=== PATIENT | female | born 1990 | race Hispanic/Latino ===

== ENCOUNTER → 2016-11-08 | Outpatient (CLI) | payer OTHER | LOC: LAB.O 12:38 | PROVIDERS: ATTEND Obstetrics & Gynecology | DX: F10.10 Alcohol abuse, uncomplicated (principal) ==

== ENCOUNTER 2016-12-26 15:59 | Emergency (ER) | payer OTHER ==
[2016-12-26 16:25] VITALS: TEMP 98.3
[2016-12-26] MEDS ORDERED: predniSONE 20 MG TAB PO ONE (16:39)
--- NOTE | 2016-12-26 16:51 | ED.PDOC ---
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 Over the last 48-72 hours she has had a little more weakness and spasticity to her right upper and right lower extremity than over her baseline. Additionally she has been having a little more tingling and sensation of something crawling on her left lateral thigh than she does at baseline. She feels like the area there is a little more numb than it normally is additionally. She reports no recent injuries and no new areas of pain. No incontinence. No change in functional status. She is very active. She has been exercising on a stationary bicycle regularly. She does take multiple medications for the neurological discomfort but has not had any recent changes in her dosages. She has been getting more dehydrated than usual as this is the start of summer and she has been outside more than normal and she has been exercising over the last couple months a little more than normal. No incontinence. She does not appear to be having any new symptoms but rather a slight worsening of her chronic symptoms. She reports that she feels that the Neurontin and methocarbamol are not having the same effect that they used to. She does have a follow-up appointment with her neurologist in 4 days. Her functional status is not changed. She is in no distress. She communicates, interacts and moves around at her baseline state. Severity: mild Improving Factors: nothing Worsening Factors: nothing Associated Symptoms: weakness Allergies/Adverse Reactions: Allergies NO KNOWN ALLERGY Allergy (Verified 12/26/16 16:26) Home Medications: Ambulatory Orders Amitriptyline HCl [Elavil] 25 mg PO BEDTIME 12/26/16 Citalopram Hydrobromide 20 mg PO DAILY 12/26/16 Famotidine 20 mg PO DAILY #30 tab 12/26/16 Gabapentin 600 mg PO TID 12/26/16 Methocarbamol 750 mg PO TID 12/26/16 cloNAZepam [KlonoPIN] 0.5 mg PO BID 12/26/16 hydrOXYzine HCl [Atarax] 25 mg PO BID 12/26/16 predniSONE [Prednisone] 40 mg PO DAILY #10 tab 12/26/16 Review of Systems - Review of Systems Constitutional: States: see HPI EENTM: States: no symptoms reported Respiratory: States: no symptoms reported Cardiology: States: no symptoms reported Gastrointestinal/Abdominal: States: no symptoms reported Genitourinary: States: no symptoms reported Musculoskeletal: States: see HPI Skin: States: no symptoms reported Neurological: States: see HPI, numbness, paresthesia, tremors, weakness Endocrine: States: no symptoms reported All other Systems: No Change from Baseline Past Medical History (General) - Patient Medical History Hx Stroke: No Hx Congestive Heart Failure: No Hx Diabetes: No Hx Renal Disease: No Hx MRSA: No - Vaccination History Hx Tetanus, Diphtheria Vaccination: Yes Hx Influenza Vaccination: Yes - 2016 Hx Pneumococcal Vaccination: No - Social History Hx Tobacco Use: No Hx Alcohol Use: No Hx Substance Use: No - Female History Hx Last Menstrual Period: 10/10/13 Patient : Yes Expected Date of Delivery:: 07/15/14 Family Medical History - Family History Mother Family History: No Known Living Status: Still Living Hx Family;Other: Pt requesting not to do family medical history at this time. Physical Exam - Physical Exam General Appearance: Alert, Comfortable, No apparent distress Eye Exam: bilateral normal Ears, Nose, Throat: hearing grossly normal, normal ENT inspection, normal pharynx Neck: non-tender, supple, other - scars from previous surgeries are apparent. There is no significant discomfort palpation. Respiratory: chest non-tender, lungs clear, normal breath sounds, no respiratory distress, no accessory muscle use Cardiovascular/Chest: normal peripheral pulses, regular rate, rhythm, no edema Peripheral Pulses: radial,right: 2+, radial,left: 2+, dorsalis pedis,right: 2+, dorsalis pedis,left: 2+, posterior tibialis,right: 2+, posterior tibialis,left: 2+ Gastrointestinal/Abdominal: non tender, soft Rectal Exam: deferred Back Exam: normal inspection, no CVA tenderness, no vertebral tenderness Extremity: no pedal edema, no calf tenderness, normal capillary refill, other - she does have significant spasticity of the right distal upper extremity. She does also have significant weakness of the right upper and right lower extremities which is apparently chronic. Neurologic: alert, normal mood/affect, oriented x 3, other - she does have some decreased sensation to the left lateral thigh. Skin Exam: normal color Comments: Vital Signs - 24 hr 12/26/16 16:16 Temperature 98.3 F Pulse Rate [ 91 H Left Radial] Respiratory 18 Rate Blood Pressure 128/74 [Left Arm] O2 Sat by Pulse 96 Oximetry Progress - Progress Progress: 12/26/16 16:53 the patient is a 26-year-old female presenting to emergency room secondary to what appears to be an exacerbation of her chronic neurological problems related to her previous C5 fracture. For the spasticity we are going to have her increase her clonazepam to 1 mg by mouth twice a day. I'm going to place her on 5 days of prednisone 40 mg daily. For now I'm going to have her discontinue the use of the exercise bicycle that she has been using over the last 2 months. Additionally she needs to increase her fluid intake significantly over the next 2-3 days as dehydration may be complicating her symptoms. She should also try and avoid overheating for the next few days as well. If her symptoms are worsening rather than improving with these measures then additional workup including blood work and other imaging may be required. I have encouraged her to keep a diary of her symptoms between now and her follow-up appointment with her specialist. She does need to keep that follow-up on Thursday. ER warnings were of course given for any acute worsening. Departure - Departure Clinical Impression: Paresthesia and pain of left extremity Disposition: Discharge to Home or Self Care Condition: Fair Departure Forms: ED Discharge - Pt. Copy, Patient Portal Self Enrollment Instructions: Neuropathic Pain Diet: regular diet Activity: increase activity as tolerated - no overheating and keep well- hydrated. Referrals: Stephen Nickerson MD [Primary Care Provider] - 1-5 Days Prescriptions: Famotidine 20 mg PO DAILY #30 tab predniSONE [Prednisone] 40 mg PO DAILY #10 tab Home Medications: Ambulatory Orders Amitriptyline HCl [Elavil] 25 mg PO BEDTIME 12/26/16 Citalopram Hydrobromide 20 mg PO DAILY 12/26/16 Famotidine 20 mg PO DAILY #30 tab 12/26/16 Gabapentin 600 mg PO TID 12/26/16 Methocarbamol 750 mg PO TID 12/26/16 cloNAZepam [KlonoPIN] 0.5 mg PO BID 12/26/16 hydrOXYzine HCl [Atarax] 25 mg PO BID 12/26/16 predniSONE [Prednisone] 40 mg PO DAILY #10 tab 12/26/16 Additional Instructions: the patient is a 26-year-old female presenting to emergency room secondary to what appears to be an exacerbation of her chronic neurological problems related to her previous C5 fracture. For the spasticity we are going to have her increase her clonazepam to 1 mg by mouth twice a day. I'm going to place her on 5 days of prednisone 40 mg daily. For now I'm going to have her discontinue the use of the exercise bicycle that she has been using over the last 2 months. Additionally she needs to increase her fluid intake significantly over the next 2-3 days as dehydration may be complicating her symptoms. She should also try and avoid overheating for the next few days as well. If her symptoms are worsening rather than improving with these measures then additional workup including blood work and other imaging may be required. I have encouraged her to keep a diary of her symptoms between now and her follow-up appointment with her specialist. She does need to keep that follow-up on Thursday. ER warnings were of course given for any acute worsening.
[2016-12-26 17:17] VITALS: BP 118/70; O2SAT 98
== END 2016-12-26 17:16 | disposition home or self-care (01) ==
LOC: ER 15:59
DX: M79.662 Pain in left lower leg (principal); R20.9 Unspecified disturbances of skin sensation; Z79.899 Other long term (current) drug therapy